=== PATIENT | male | born 1930 ===

== ENCOUNTER 2016-12-15 08:54 | Outpatient (RCR) | payer MEDICARE, MEDICAID | END 2016-12-22 | disposition home or self-care (01) | LOC: WCC 08:54 | DX: L97.821 Non-pressure chronic ulcer of other part of left lower leg limited to breakdown of skin (principal); I48.1 Persistent atrial fibrillation; M19.90 Unspecified osteoarthritis, unspecified site; Z89.612 Acquired absence of left leg above knee; Z89.611 Acquired absence of right leg above knee | CPT/HCPCS: 10060; G0463 ==

== ENCOUNTER 2017-12-21 11:33 | Outpatient (RCR) | payer MEDICARE, MEDICAID | END 2017-12-22 | disposition home or self-care (01) | LOC: WCC 11:33 | DX: L97.822 Non-pressure chronic ulcer of other part of left lower leg with fat layer exposed (principal); I48.1 Persistent atrial fibrillation; I10 Essential (primary) hypertension; Z89.611 Acquired absence of right leg above knee; Z96.651 Presence of right artificial knee joint; Z79.01 Long term (current) use of anticoagulants | CPT/HCPCS: 11042 ==